=== PATIENT | male | born 2005 | race Two or more races ===

== ENCOUNTER 2025-07-29 10:50 | Emergency (ER) | payer MEDICAID, SELFPAY ==
[2025-07-29 11:02] VITALS: BP 156/91; PULSE 84; RESP 18; TEMP 36.6; O2SAT 97; BMI 30.4
--- NOTE | 2025-07-29 11:12 | XR_ITS ---
EXAMINATION: Thoracic spine 3 views TECHNIQUE: AP lateral: Lateral upper dorsal spine 3 views Date and time: July 29, 2025, 1125 hours INDICATIONS: Injury to the back today, back pain FINDINGS: Thoracic dextroscoliosis 9 degrees No acute thoracic fracture visualized IMPRESSION: No acute thoracic fracture visualized
--- NOTE | 2025-07-29 11:35 | EDNOTE_ITS ---
<Statement entered by Ava Hollingsworth MD - 07/30/25 17:43> As co-signing physician, I was present and available for consult prn. I concur with the plan and care as documented by the midlevel provider. ED Back Injury Pain RME/HPI General Chief Complaint: Back Pain/Injury Stated Complaint: R) SIDED BACK PAIN X 2 DAYS Time Seen by Provider: 07/29/25 10:55 Source: patient Arrival date/time: 07/29/25 10:50 19-year-old male with no known medical history presents to the emergency room with a chief complaint of thoracic and right sided back pain x 2 days. Patient states this occurred after lifting up something heavy. Mode of arrival: ambulatory Limitations: no limitations Related Data Allergies Allergy/AdvReac Type Severity Reaction Status Date / Time No Known Allergies Allergy Verified 07/29/25 10:53 Review of Systems Review of Systems Systems Reviewed: All systems reviewed, normal except as documented Constitutional Constitutional: Reports system reviewed and no additional complaints, except as documented, Denies fatigue, Denies fever(s), Denies headache(s) and Denies weakness Eyes Eyes: Reports system reviewed and no additional complaints, except as documented, Denies blurry vision and Denies change in vision ENT Ears, Nose, Mouth, and Throat: Reports system reviewed and no additional complaints, except as documented, Denies otalgia, Denies headache(s), Denies nasal congestion, Denies throat swelling and Denies vertigo Cardiovascular Cardiovascular: Reports system reviewed and no additional complaints, except as documented, Denies chest pain, Denies dyspnea and Denies dyspnea on exertion Respiratory Respiratory: Reports system reviewed and no additional complaints, except as documented, Denies chest congestion, Denies cough, Denies dyspnea, Denies dyspnea on exertion and Denies wheezing Gastrointestinal Gastrointestinal: Reports system reviewed and no additional complaints, except as documented, Denies abdominal pain, Denies cramping, Denies nausea and Denies vomiting Genitourinary Genitourinary: Reports system reviewed and no additional complaints, except as documented, Denies dysuria and Denies hematuria Musculoskeletal Musculoskeletal: Reports system reviewed and no additional complaints, except as documented, Reports arthralgias, Denies back pain, Reports joint swelling and Reports limited range of motion Integumentary/Breasts Skin/Breast: Reports system reviewed and no additional complaints, except as documented and Denies wounds Neurologic Neurologic: Reports system reviewed and no additional complaints, except as documented, Denies confusion, Denies headache(s), Denies lack of coordination, Denies vertigo and Denies weakness Psychiatric Psychiatric: Reports system reviewed and no additional complaints, except as documented, Denies anxiety, Denies confusion, Denies depression, Denies paranoia, Denies suicidal ideation and Denies tactile hallucinations Endocrine Endocrine: Reports system reviewed and no additional complaints, except as documented and Denies fatigue Hematologic/Lymphatic Hematologic/Lymphatic: Reports system reviewed and no additional complaints, except as documented and Denies lymphadenopathy Allergic/Immunologic Allergic/Immunologic: Reports system reviewed and no additional complaints, except as documented, Denies throat swelling, Denies urticaria and Denies wheezing Past Medical History Social History SMOKING STATUS: Never smoker ED Exam General Limitations: Present no limitations General appearance: Present alert and in no apparent distress Head Head exam: Present atraumatic Eye Eye exam: Present normal appearance, PERRL and EOMI ENT ENT exam: Present normal exam, normal oropharynx and mucous membranes moist Neck Neck exam: Present normal inspection, full ROM and trachea midline Chest Chest inspection: Present normal inspection and symmetric chest wall rise Respiratory Respiratory exam: Present normal lung sounds bilaterally Cardiovascular Cardiovascular exam: Present regular rate, normal rhythm and normal heart sounds Abdominal Exam Abdominal exam: Present soft and normal bowel sounds Extremities Exam Extremities exam: Present normal inspection and full ROM Back Exam Back exam: Present normal inspection and full ROM Back 1 view image: 2 1. Tenderness with palpation Neurological Exam Neurological exam: Present alert, oriented X3 and CN II-XII intact Psychiatric Psychiatric exam: Present normal affect and normal mood Skin Skin exam: Present warm, dry, intact and normal color Course Quality Measures none Orders Category Date Time Status XR thoracic spine 2V Stat Exams 07/29/25 11:12 Completed Ketorolac Inj [Toradol Inj] Med 07/29/25 11:12 Discontinued 30 mg IM X1 ONE Vital Signs Vital signs: Vital Signs Temperature 97.8 F 07/29/25 11:02 Pulse Rate 84 07/29/25 11:02 Respiratory Rate 18 07/29/25 11:02 Blood Pressure 156/91 H 07/29/25 11:02 Pulse Oximetry (%) 97 07/29/25 11:02 Oxygen Delivery Method Room Air 07/29/25 11:02 Back Pain / Injury MDM Narrative MDM Narrative:: 19-year-old male with no known medical history presents to the emergency room with a chief complaint of thoracic and right sided back pain x 2 days. Patient states this occurred after lifting up something heavy. Patient is hemodynamically stable and in no apparent distress Physical examination shows tenderness with palpation to the thoracic area the patient's spine. Patient denies any numbness to the lower extremities. There is no loss of bowel or bladder function. Patient has full range of motion. X-ray of the thoracic spine was negative for any acute fracture or dislocation. The x-ray did show some thoracic dextroscoliosis 9 degrees. Patient was educated to follow-up with his primary care provider for further management. Patient was discharged and educated to follow-up with primary care provider in the next 24 to 48 hours and return to the emergency room for any evidence of worsening signs or symptoms Patient data External records reviewed:: [facility] previous records Clinical information provided by:: patient Social determinants that could affect healthcare access:: none Patient has the following chronic illnesses:: No chronic illness How is presenting disease/condition affected by chronic disease/condition?: no chronic disease Evaluation data The following diagnostics were reviewed and interpreted by me:: lab results and radiology exam(s) Lab and/or radiology exams considered but not ordered:: Labs and radiology exams considered and ordered Interpretation Summary: Thoracic [id number]: Thoracic dextroscoliosis 9 degrees No acute thoracic fracture visualized IMPRESSION: No acute thoracic fracture visualized Medications / Prescriptions Medications or Prescriptions considered but not ordered:: Medication given Medication administrations:: Medication Administration History Discontinued Medications Ketorolac Tromethamine (Ketorolac Inj 60 Mg/2 Ml Vial) 30 mg IM X1 ONE Stop: 07/29/25 11:13 Last Admin: 07/29/25 12:05 Dose: 30 mg Documented By: Medication given Consultations Consultation(s) initiated? (list below): No Diagnosis Differential diagnosis back pain/injury: strain of lumbar region, thoracic back pain and other (Thoracic dextroscoliosis) Most likely diagnosis given after review of the tests above:: Thoracic dextroscoliosis Admission Indicated Admission indicated?: not indicated Admission Request Was there a request for admission?: No Disposition Plan Disposition Plan: Discharge Discharge Attestation Discharge Attestation: The patient and all family members were given an opportunity to ask questions and understood the discharge instructions. Discharge instructions specifically effects, indications for sooner follow up or return to the emergency department, and the expected course of current diagnosis. Patient condition: Stable Discharge Plan Plan Patient Disposition: HOME (Self Care) Discharge Disposition comment: Stable Prescriptions/Referrals Referrals: No Primary/Family,Physician [Primary Care Provider] - In 1 week Problem List Clinical Impression: Dextroscoliosis of thoracic spine Patient/Caregiver Discharge Instructions Education Materials: Understanding Scoliosis, Your Scoliosis Evaluation, Anatomy of a Normal Spine Additional Instructions: Please follow-up with your primary care provider in the next 24 to 48 hours Your x-ray of your thoracic spine showed some scoliosis which is an abnormal curvature of your spine Please follow-up with your primary care provider for further management For any evidence of worsening signs or symptoms return to emergency room immediately Print Language: Cuban Stand Alone Forms: June Award Info., Work/School Release, Patient Portal Info Letter PA/TABLE G[employer] 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 Motley
[2025-07-29] MEDS: KETOROLAC INJ 60 MG/2 ML VIAL 30 MG IM (12:05)
== END 2025-07-29 12:14 | disposition home or self-care (01) ==
PROVIDERS: Emergency Provider Nurse Practitioner Family
DX: M41.9 Scoliosis, unspecified (principal)
CPT/HCPCS: 72070; 72072; 96372; 99283; J1885